=== PATIENT | male | born 1960 | race African-American/Black ===

== ENCOUNTER 2020-05-01 10:20 | Inpatient (IN) ==
[2020-05-01] MEDS ORDERED: SODIUM CHLORIDE 0.9% 500 ML IV STA (10:50)
[2020-05-01 10:59] LABS: Basophils % 0.2 % (0.0-0.8); Eosinophils % 0.1 % (0.00-10.9); Hematocrit 39.5 VOL% (42.0-52.0); Hemoglobin 12.7 GM/DL (14.0-18.0); Immature Granulocytes % 0.6 %; Immature Granulocytes Absolute 0.07 #; Lymphocytes # 1.1 10*3/uL (1.4-4.0); Lymphocytes % 10.1 % (21.2-54.2); Mean Corpuscular HGB Conc 32.2 GM/DL (32-36); Mean Corpuscular Volume 74.8 FL (87-102); Mean Platelet Volume 10.6 FL (9.6-12.0); Monocytes % 8.3 % (1.7-12.7); Neutrophils % 80.7 % (38.7-73.9); Platelet Count 300 T/CUMM (130-400); Red Blood Count 5.28 MC/CUMM (3.8-5.5); Red Cell Distribution Width 15.2 % (9.3-17.3); White Blood Count 10.8 T/CUMM (4-12)
[2020-05-01 11:25] LABS: Albumin 3.5 G/DL (3.4-5.0); Bilirubin,Total 0.8 MG/DL (0.2-1.0); Osmolality,Calculated 274.1 MOS/KG (273-304); Total Protein 8.5 G/DL (6.4-8.3)
[2020-05-01] MEDS ORDERED: DOCUSATE SODIUM 100 MG CAPSULE PO PRN (14:34)
[2020-05-01] MEDS ORDERED: DEXTROSE 50% 25 GM/50 ML VIAL IV PRN (14:34)
[2020-05-01] MEDS ORDERED: ACETAMINOPHEN 325 MG TABLET PO PRN (14:34)
[2020-05-01] MEDS ORDERED: GLUCAGON 1 MG VIAL IM PRN (14:34)
[2020-05-01] MEDS ORDERED: ONDANSETRON 4 MG/2 ML VIAL IV PRN (14:34)
[2020-05-01] MEDS ORDERED: hydrALAZINE 20 MG/1 ML VIAL IV PRN (14:34)
[2020-05-01] MEDS ORDERED: MAGNESIUM SULF RIDER 4 GM in PREMIX 1 EACH IV PRN (14:39)
[2020-05-01] MEDS ORDERED: MAGNESIUM SULF RIDER 2 GM in PREMIX 1 EACH IV PRN (14:39)
[2020-05-01] MEDS: SODIUM CHLORIDE 0.9% 1,000 ML IV SCH (17:14)
[2020-05-01] MEDS: ENOXAPARIN 40 MG/0.4 ML SYRINGE SUBCUT SCH (17:15)
[2020-05-01 19:51] LABS: Bilirubin,Urine Negative (Negative); Blood, Urine Negative (Negative); Glucose,Urine (UA) Negative (Negative); Hyaline Casts,Urine 7 /LPF (0-3); Ketones,Urine Negative (Negative); Mucus,Urine Occasional /LPF (Occasional); Nitrite,Urine Negative (Negative); Protein,Urine Negative; Squamous Epithelial Cell,Urine Occasional /HPF (0-10); Urine Appearance CLEAR (Clear); Urine Color Yellow (Yellow); Urine Specific Gravity > 1.060 (1.001-1.035); Urine Urobilinogen < 2.0 EU/DL (0.2-1.0)
[2020-05-01] MEDS: traZODone 50 MG TABLET PO PRN (22:21)
[2020-05-02] MEDS: SODIUM CHLORIDE 0.9% 1,000 ML IV SCH ×3 (02:00→17:39)
[2020-05-02 05:45] LABS: Basophils % 0.3 % (0.0-0.8); Eosinophils % 0.1 % (0.00-10.9); Hematocrit 34.3 VOL% (42.0-52.0); Immature Granulocytes % 0.6 %; Immature Granulocytes Absolute 0.05 #; Lymphocytes # 0.9 10*3/uL (1.4-4.0); Lymphocytes % 10.1 % (21.2-54.2); Mean Corpuscular HGB Conc 32.1 GM/DL (32-36); Mean Corpuscular Volume 74.2 FL (87-102); Mean Platelet Volume 12.5 FL (9.6-12.0); Monocytes % 12.6 % (1.7-12.7); Neutrophils % 76.3 % (38.7-73.9); Platelet Count 249 T/CUMM (130-400); Red Blood Count 4.62 MC/CUMM (3.8-5.5); Red Cell Distribution Width 14.9 % (9.3-17.3); White Blood Count 8.7 T/CUMM (4-12)
[2020-05-02 06:10] LABS: Albumin 2.8 G/DL (3.4-5.0); Bilirubin,Total 1.4 MG/DL (0.2-1.0); Calcium 10.4 MG/DL (8.5-10.1); Osmolality,Calculated 270.8 MOS/KG (273-304); Total Protein 7.8 G/DL (6.4-8.3)
[2020-05-02] MEDS: MEGESTROL 40 MG TABLET PO SCH (08:39)
[2020-05-02] MEDS: FOLIC ACID 1 MG TABLET PO SCH (08:40)
[2020-05-02] MEDS: MAGNESIUM OXIDE 400 MG TABLET PO SCH (08:40)
[2020-05-02] MEDS: amLODIPine 10 MG TABLET PO SCH (08:40)
[2020-05-02] MEDS: lisinopriL 20 MG TABLET PO SCH (08:40)
[2020-05-02] MEDS ORDERED: ZOLEDRONIC ACID 4 MG in PREMIX 1 EACH IV ONE ×2 (12:00→14:30)
[2020-05-02] MEDS: fentaNYL 25 MCG/HR PATCH TRANSDERM SCH (13:16)
[2020-05-02 14:22] LABS: % Iron Saturation 13.1 % (18-50); Ferritin 8813.8 ng/ml (26-388)
[2020-05-02] MEDS: ENOXAPARIN 40 MG/0.4 ML SYRINGE SUBCUT SCH (20:32)
[2020-05-03] MEDS: SODIUM CHLORIDE 0.9% 1,000 ML IV SCH ×2 (02:15→09:48)
[2020-05-03 05:44] LABS: Basophils % 0.3 % (0.0-0.8); Eosinophils % 0.1 % (0.00-10.9); Hematocrit 34.6 VOL% (42.0-52.0); Hemoglobin 11.1 GM/DL (14.0-18.0); Immature Granulocytes % 0.6 %; Immature Granulocytes Absolute 0.07 #; Lymphocytes # 0.8 10*3/uL (1.4-4.0); Lymphocytes % 7.4 % (21.2-54.2); Mean Corpuscular HGB Conc 32.1 GM/DL (32-36); Mean Corpuscular Volume 73.6 FL (87-102); Mean Platelet Volume 12.4 FL (9.6-12.0); Neutrophils % 80.6 % (38.7-73.9); Platelet Count 239 T/CUMM (130-400); Red Cell Distribution Width 14.8 % (9.3-17.3); White Blood Count 11.3 T/CUMM (4-12)
[2020-05-03 06:07] LABS: Calcium 9.3 MG/DL (8.5-10.1); Osmolality,Calculated 265.2 MOS/KG (273-304)
[2020-05-03 06:11] LABS: Albumin 2.6 G/DL (3.4-5.0); Bilirubin,Total 1.2 MG/DL (0.2-1.0); Calcium 9.3 MG/DL (8.5-10.1); Osmolality,Calculated 263.4 MOS/KG (273-304); Total Protein 7.5 G/DL (6.4-8.3)
[2020-05-03] MEDS: lisinopriL 20 MG TABLET PO SCH (09:15)
[2020-05-03] MEDS: MEGESTROL 40 MG TABLET PO SCH (09:15)
[2020-05-03] MEDS: FOLIC ACID 1 MG TABLET PO SCH (09:15)
[2020-05-03] MEDS: amLODIPine 10 MG TABLET PO SCH (09:16)
[2020-05-03] MEDS: MAGNESIUM OXIDE 400 MG TABLET PO SCH (09:16)
[2020-05-03] MEDS: ENOXAPARIN 40 MG/0.4 ML SYRINGE SUBCUT SCH (20:46)
[2020-05-04] MEDS: SODIUM CHLORIDE 0.9% 1,000 ML IV SCH ×4 (03:21→17:59)
[2020-05-04 05:42] LABS: Basophils % 0.2 % (0.0-0.8); Eosinophils % 0.2 % (0.00-10.9); Hematocrit 30.7 VOL% (42.0-52.0); Hemoglobin 10.1 GM/DL (14.0-18.0); Immature Granulocytes % 0.6 %; Immature Granulocytes Absolute 0.07 #; Lymphocytes # 0.9 10*3/uL (1.4-4.0); Lymphocytes % 7.9 % (21.2-54.2); Mean Corpuscular HGB Conc 32.9 GM/DL (32-36); Mean Corpuscular Volume 72.2 FL (87-102); Mean Platelet Volume 11.9 FL (9.6-12.0); Monocytes % 10.7 % (1.7-12.7); Neutrophils % 80.4 % (38.7-73.9); Platelet Count 221 T/CUMM (130-400); Red Blood Count 4.25 MC/CUMM (3.8-5.5); Red Cell Distribution Width 14.7 % (9.3-17.3); White Blood Count 10.9 T/CUMM (4-12)
[2020-05-04 06:03] LABS: Albumin 2.4 G/DL (3.4-5.0); Bilirubin,Total 0.8 MG/DL (0.2-1.0); Calcium 8.7 MG/DL (8.5-10.1); Osmolality,Calculated 261.5 MOS/KG (273-304); Total Protein 7.2 G/DL (6.4-8.3)
[2020-05-04] MEDS: lisinopriL 20 MG TABLET PO SCH (08:02)
[2020-05-04] MEDS: MEGESTROL 40 MG TABLET PO SCH (08:02)
[2020-05-04] MEDS: FOLIC ACID 1 MG TABLET PO SCH (08:02)
[2020-05-04] MEDS: amLODIPine 10 MG TABLET PO SCH (08:02)
[2020-05-04] MEDS: MAGNESIUM OXIDE 400 MG TABLET PO SCH (08:02)
[2020-05-04] MEDS: POTASSIUM CHLORIDE 20 MEQ TABLET PO PRN ×3 (08:03→13:03)
[2020-05-04] MEDS: ENOXAPARIN 40 MG/0.4 ML SYRINGE SUBCUT SCH (20:45)
[2020-05-05] MEDS: MORPHINE 4 MG/1 ML VIAL IV PRN (04:07)
[2020-05-05] MEDS: SODIUM CHLORIDE 0.9% 1,000 ML IV SCH ×4 (04:08→21:47)
[2020-05-05 06:01] LABS: Basophils % 0.1 % (0.0-0.8); Eosinophils # 0.2 10*3/uL (0.0-0.87); Eosinophils % 1.6 % (0.00-10.9); Hematocrit 32.6 VOL% (42.0-52.0); Hemoglobin 10.6 GM/DL (14.0-18.0); Immature Granulocytes % 0.5 %; Immature Granulocytes Absolute 0.07 #; Lymphocytes # 0.8 10*3/uL (1.4-4.0); Mean Corpuscular HGB Conc 32.5 GM/DL (32-36); Mean Corpuscular Volume 71.5 FL (87-102); Mean Platelet Volume 11.8 FL (9.6-12.0); Monocytes % 10.2 % (1.7-12.7); Neutrophils % 81.6 % (38.7-73.9); Platelet Count 282 T/CUMM (130-400); Red Blood Count 4.56 MC/CUMM (3.8-5.5); Red Cell Distribution Width 14.6 % (9.3-17.3); White Blood Count 13.5 T/CUMM (4-12)
[2020-05-05 06:33] LABS: Albumin 2.4 G/DL (3.4-5.0); Calcium 8.5 MG/DL (8.5-10.1); Osmolality,Calculated 261.5 MOS/KG (273-304); Total Protein 7.4 G/DL (6.4-8.3)
[2020-05-05] MEDS: fentaNYL 25 MCG/HR PATCH TRANSDERM SCH (08:55)
[2020-05-05] MEDS: amLODIPine 10 MG TABLET PO SCH (08:56)
[2020-05-05] MEDS: lisinopriL 20 MG TABLET PO SCH (08:56)
[2020-05-05] MEDS: MAGNESIUM OXIDE 400 MG TABLET PO SCH (08:56)
[2020-05-05] MEDS: FOLIC ACID 1 MG TABLET PO SCH (08:56)
[2020-05-05] MEDS: MEGESTROL 40 MG TABLET PO SCH (08:56)
[2020-05-05] MEDS: ENOXAPARIN 40 MG/0.4 ML SYRINGE SUBCUT SCH (21:42)
[2020-05-05] MEDS: traZODone 50 MG TABLET PO PRN (21:42)
[2020-05-06] MEDS: SODIUM CHLORIDE 0.9% 1,000 ML IV SCH (06:01)
[2020-05-06 06:21] LABS: Basophils % 0.2 % (0.0-0.8); Eosinophils # 0.4 10*3/uL (0.0-0.87); Eosinophils % 2.1 % (0.00-10.9); Hematocrit 35.6 VOL% (42.0-52.0); Hemoglobin 11.7 GM/DL (14.0-18.0); Immature Granulocytes % 0.8 %; Immature Granulocytes Absolute 0.14 #; Lymphocytes # 0.9 10*3/uL (1.4-4.0); Lymphocytes % 4.7 % (21.2-54.2); Mean Corpuscular HGB Conc 32.9 GM/DL (32-36); Mean Corpuscular Volume 70.8 FL (87-102); Mean Platelet Volume 10.2 FL (9.6-12.0); Neutrophils % 83.2 % (38.7-73.9); Platelet Count 337 T/CUMM (130-400); Red Blood Count 5.03 MC/CUMM (3.8-5.5); White Blood Count 18.6 T/CUMM (4-12)
[2020-05-06 06:52] LABS: Albumin 2.4 G/DL (3.4-5.0); Bilirubin,Total 1.1 MG/DL (0.2-1.0); Calcium 8.3 MG/DL (8.5-10.1); Osmolality,Calculated 261.5 MOS/KG (273-304); Total Protein 7.9 G/DL (6.4-8.3)
[2020-05-06 07:03] LABS: Anisocytosis Slight; Eosinophils 3 % (0-10); Lymphocytes 3 % (20-55); Macrocytosis Slight; Platelet Estimate Normal; Segmented Neutrophils 86 % (50-85); Total Cells Counted 100
[2020-05-06] MEDS: lisinopriL 20 MG TABLET PO SCH (09:00)
[2020-05-06] MEDS: MAGNESIUM OXIDE 400 MG TABLET PO SCH (09:00)
[2020-05-06] MEDS: FOLIC ACID 1 MG TABLET PO SCH (09:00)
[2020-05-06] MEDS: MEGESTROL 40 MG TABLET PO SCH (09:00)
[2020-05-06] MEDS: amLODIPine 10 MG TABLET PO SCH (09:00)
[2020-05-06] MEDS: MORPHINE 4 MG/1 ML VIAL IV PRN (17:52)
[2020-05-06] MEDS: ENOXAPARIN 40 MG/0.4 ML SYRINGE SUBCUT SCH (20:00)
[2020-05-07] MEDS: MORPHINE 4 MG/1 ML VIAL IV PRN (04:50)
[2020-05-07] MEDS: lisinopriL 20 MG TABLET PO SCH (08:48)
[2020-05-07] MEDS: MAGNESIUM OXIDE 400 MG TABLET PO SCH (08:48)
[2020-05-07] MEDS: FOLIC ACID 1 MG TABLET PO SCH (08:48)
[2020-05-07] MEDS: amLODIPine 10 MG TABLET PO SCH (08:48)
[2020-05-07] MEDS: MEGESTROL 40 MG TABLET PO SCH (08:48)
[2020-05-07 20:01] LABS: Bacteria,Urine Occasional /HPF (Few); Bilirubin,Urine Small mg/dL (Negative); Blood, Urine Moderate mg/dL (Negative); Glucose,Urine (UA) Negative (Negative); Hyaline Casts,Urine 14 /LPF (0-3); Ketones,Urine 5 mg/dL (Negative); Mucus,Urine Occasional /LPF (Occasional); Nitrite,Urine Negative (Negative); Protein,Urine 30 MG/DL; RBC,Urine 19 /HPF (0-4); Squamous Epithelial Cell,Urine Occasional /HPF (0-10); Urine Appearance Slightly Hazy (Clear); Urine Color Amber (Yellow); WBC,Urine 93 /HPF (0-6)
[2020-05-07] MEDS: ENOXAPARIN 40 MG/0.4 ML SYRINGE SUBCUT SCH (20:50)
[2020-05-07] MEDS: traZODone 50 MG TABLET PO PRN (20:51)
[2020-05-07] MEDS: DEXAMETHASONE 4 MG/1 ML VIAL IV SCH (20:51)
[2020-05-08 01:25] LABS: Calcium 7.7 MG/DL (8.5-10.1); Osmolality,Calculated 274.1 MOS/KG (273-304)
[2020-05-08 01:34] LABS: Basophils % 0.1 % (0.0-0.8); Eosinophils # 0.2 10*3/uL (0.0-0.87); Eosinophils % 1.6 % (0.00-10.9); Hematocrit 31.3 VOL% (42.0-52.0); Hemoglobin 10.3 GM/DL (14.0-18.0); Immature Granulocytes % 0.7 %; Immature Granulocytes Absolute 0.07 #; Lymphocytes # 0.5 10*3/uL (1.4-4.0); Lymphocytes % 4.6 % (21.2-54.2); Mean Corpuscular HGB Conc 32.9 GM/DL (32-36); Mean Corpuscular Volume 71.1 FL (87-102); Mean Platelet Volume 11.4 FL (9.6-12.0); Monocytes % 3.2 % (1.7-12.7); Neutrophils % 89.8 % (38.7-73.9); Platelet Count 424 T/CUMM (130-400); Red Cell Distribution Width 14.9 % (9.3-17.3); White Blood Count 9.9 T/CUMM (4-12)
[2020-05-08] MEDS: FOLIC ACID 1 MG TABLET PO SCH (09:05)
[2020-05-08] MEDS: fentaNYL 25 MCG/HR PATCH TRANSDERM SCH (09:05)
[2020-05-08] MEDS: amLODIPine 10 MG TABLET PO SCH (09:05)
[2020-05-08] MEDS: MEGESTROL 40 MG TABLET PO SCH (09:05)
[2020-05-08] MEDS: MAGNESIUM OXIDE 400 MG TABLET PO SCH (09:05)
[2020-05-08] MEDS: lisinopriL 20 MG TABLET PO SCH (09:05)
[2020-05-08] MEDS: MORPHINE 4 MG/1 ML VIAL IV PRN (09:06)
[2020-05-08] MEDS: DEXAMETHASONE 4 MG/1 ML VIAL IV SCH ×3 (09:08→22:01)
[2020-05-08] MEDS: cefTRIAXone 1,000 MG in SYRINGE 1 EACH IV SCH (14:24)
[2020-05-08] MEDS: traZODone 50 MG TABLET PO PRN (22:02)
[2020-05-08] MEDS: ENOXAPARIN 40 MG/0.4 ML SYRINGE SUBCUT SCH (22:02)
[2020-05-09] MEDS: FOLIC ACID 1 MG TABLET PO SCH (08:47)
[2020-05-09] MEDS: MAGNESIUM OXIDE 400 MG TABLET PO SCH (08:47)
[2020-05-09] MEDS: MEGESTROL 40 MG TABLET PO SCH (08:47)
[2020-05-09] MEDS: lisinopriL 20 MG TABLET PO SCH (08:47)
[2020-05-09] MEDS: DEXAMETHASONE 4 MG/1 ML VIAL IV SCH ×3 (08:48→20:35)
[2020-05-09] MEDS: amLODIPine 10 MG TABLET PO SCH (08:48)
[2020-05-09] MEDS: cefTRIAXone 1,000 MG in SYRINGE 1 EACH IV SCH (09:08)
[2020-05-09] MEDS: ENOXAPARIN 40 MG/0.4 ML SYRINGE SUBCUT SCH (20:32)
[2020-05-09] MEDS: traZODone 50 MG TABLET PO PRN (21:36)
[2020-05-09] MEDS: MORPHINE 4 MG/1 ML VIAL IV PRN (23:52)
[2020-05-10 06:15] LABS: Basophils % 0.1 % (0.0-0.8); Hematocrit 31.8 VOL% (42.0-52.0); Hemoglobin 10.2 GM/DL (14.0-18.0); Immature Granulocytes % 1.5 %; Immature Granulocytes Absolute 0.18 #; Lymphocytes # 0.9 10*3/uL (1.4-4.0); Lymphocytes % 7.9 % (21.2-54.2); Mean Corpuscular HGB Conc 32.1 GM/DL (32-36); Mean Corpuscular Volume 72.9 FL (87-102); Mean Platelet Volume 10.7 FL (9.6-12.0); Monocytes % 10.1 % (1.7-12.7); Neutrophils % 80.4 % (38.7-73.9); Platelet Count 578 T/CUMM (130-400); Red Blood Count 4.36 MC/CUMM (3.8-5.5); Red Cell Distribution Width 15.2 % (9.3-17.3); White Blood Count 11.9 T/CUMM (4-12)
[2020-05-10 06:27] LABS: Calcium 8.9 MG/DL (8.5-10.1); Osmolality,Calculated 281.5 MOS/KG (273-304)
[2020-05-10] MEDS: DEXAMETHASONE 4 MG/1 ML VIAL IV SCH ×3 (08:18→20:29)
[2020-05-10] MEDS: MEGESTROL 40 MG TABLET PO SCH (08:19)
[2020-05-10] MEDS: cefTRIAXone 1,000 MG in SYRINGE 1 EACH IV SCH (08:19)
[2020-05-10] MEDS: amLODIPine 10 MG TABLET PO SCH (08:19)
[2020-05-10] MEDS: FOLIC ACID 1 MG TABLET PO SCH (08:19)
[2020-05-10] MEDS: lisinopriL 20 MG TABLET PO SCH (08:19)
[2020-05-10] MEDS: MAGNESIUM OXIDE 400 MG TABLET PO SCH (08:19)
[2020-05-10] MEDS: ENOXAPARIN 40 MG/0.4 ML SYRINGE SUBCUT SCH (20:29)
[2020-05-11 06:33] LABS: Basophils % 0.1 % (0.0-0.8); Hematocrit 33.4 VOL% (42.0-52.0); Hemoglobin 10.8 GM/DL (14.0-18.0); Immature Granulocytes % 2.8 %; Lymphocytes # 1.4 10*3/uL (1.4-4.0); Lymphocytes % 9.8 % (21.2-54.2); Mean Corpuscular HGB Conc 32.3 GM/DL (32-36); Mean Corpuscular Volume 71.2 FL (87-102); Mean Platelet Volume 10.3 FL (9.6-12.0); Monocytes % 11.9 % (1.7-12.7); NRBC # 0.04 10*3/uL; Neutrophils % 75.4 % (38.7-73.9); Platelet Count 558 T/CUMM (130-400); Red Blood Count 4.69 MC/CUMM (3.8-5.5); Red Cell Distribution Width 15.5 % (9.3-17.3); White Blood Count 14.3 T/CUMM (4-12)
[2020-05-11 07:06] LABS: Calcium 9.3 MG/DL (8.5-10.1); Osmolality,Calculated 279.5 MOS/KG (273-304)
[2020-05-11] MEDS: DEXAMETHASONE 4 MG/1 ML VIAL IV SCH ×3 (09:11→21:14)
[2020-05-11] MEDS: cefTRIAXone 1,000 MG in SYRINGE 1 EACH IV SCH (09:11)
[2020-05-11] MEDS: amLODIPine 10 MG TABLET PO SCH (09:11)
[2020-05-11] MEDS: fentaNYL 25 MCG/HR PATCH TRANSDERM SCH (09:11)
[2020-05-11] MEDS: MAGNESIUM OXIDE 400 MG TABLET PO SCH (09:12)
[2020-05-11] MEDS: FOLIC ACID 1 MG TABLET PO SCH (09:12)
[2020-05-11] MEDS: MEGESTROL 40 MG TABLET PO SCH (09:12)
[2020-05-11] MEDS: lisinopriL 20 MG TABLET PO SCH (09:12)
[2020-05-11] MEDS: ENOXAPARIN 40 MG/0.4 ML SYRINGE SUBCUT SCH (21:13)
[2020-05-12] MEDS: amLODIPine 10 MG TABLET PO SCH (09:52)
[2020-05-12] MEDS: FOLIC ACID 1 MG TABLET PO SCH (09:52)
[2020-05-12] MEDS: cefTRIAXone 1,000 MG in SYRINGE 1 EACH IV SCH (09:53)
[2020-05-12] MEDS: lisinopriL 20 MG TABLET PO SCH (09:53)
[2020-05-12] MEDS: DEXAMETHASONE 4 MG/1 ML VIAL IV SCH ×3 (09:53→20:40)
[2020-05-12] MEDS: MAGNESIUM OXIDE 400 MG TABLET PO SCH (09:53)
[2020-05-12] MEDS: MEGESTROL 40 MG TABLET PO SCH (09:53)
[2020-05-12] MEDS: ENOXAPARIN 40 MG/0.4 ML SYRINGE SUBCUT SCH (20:39)
[2020-05-12] MEDS: traZODone 50 MG TABLET PO PRN (22:29)
[2020-05-13 06:08] LABS: Basophils % 0.1 % (0.0-0.8); Hemoglobin 10.4 GM/DL (14.0-18.0); Immature Granulocytes % 2.8 %; Immature Granulocytes Absolute 0.46 #; Lymphocytes # 0.9 10*3/uL (1.4-4.0); Lymphocytes % 5.6 % (21.2-54.2); Mean Corpuscular HGB Conc 32.5 GM/DL (32-36); Mean Corpuscular Volume 70.8 FL (87-102); Mean Platelet Volume 10.3 FL (9.6-12.0); Monocytes % 7.5 % (1.7-12.7); NRBC # 0.02 10*3/uL; Platelet Count 531 T/CUMM (130-400); Red Blood Count 4.52 MC/CUMM (3.8-5.5); Red Cell Distribution Width 15.9 % (9.3-17.3); White Blood Count 16.7 T/CUMM (4-12)
[2020-05-13 06:32] LABS: Calcium 9.2 MG/DL (8.5-10.1); Osmolality,Calculated 273.1 MOS/KG (273-304)
[2020-05-13] MEDS: amLODIPine 10 MG TABLET PO SCH (09:03)
[2020-05-13] MEDS: lisinopriL 20 MG TABLET PO SCH (09:03)
[2020-05-13] MEDS: MAGNESIUM OXIDE 400 MG TABLET PO SCH (09:03)
[2020-05-13] MEDS: cefTRIAXone 1,000 MG in SYRINGE 1 EACH IV SCH (09:04)
[2020-05-13] MEDS: FOLIC ACID 1 MG TABLET PO SCH (09:04)
[2020-05-13] MEDS: DEXAMETHASONE 4 MG/1 ML VIAL IV SCH ×3 (09:04→21:34)
[2020-05-13] MEDS: MEGESTROL 40 MG TABLET PO SCH (09:04)
[2020-05-13] MEDS ORDERED: SODIUM PHOSPHATE ENEMA 133 ML BOTTLE RECTAL PRN (11:12)
[2020-05-13] MEDS: POLYETHYLENE GLYCOL POWDER 17 GM PACK PO SCH ×2 (11:25→21:33)
[2020-05-13] MEDS ORDERED: PEMETREXED IV ONE (12:00)
[2020-05-13] MEDS ORDERED: CARBOplatin 500 MG in SODIUM CHLORIDE 0.9% 250 ML IV ONE (12:00)
[2020-05-13] MEDS ORDERED: GRANISETRON 1 MG/1 ML VIAL IV SCH (12:00)
[2020-05-13] MEDS ORDERED: SODIUM CHLORIDE 0.9% IV ONE (12:00)
[2020-05-13] MEDS ORDERED: DEXAMETHASONE 10 MG/1 ML VIAL IV ONE (12:00)
[2020-05-13] MEDS: traZODone 50 MG TABLET PO PRN (21:34)
[2020-05-13] MEDS: ENOXAPARIN 40 MG/0.4 ML SYRINGE SUBCUT SCH (21:34)
[2020-05-14 04:40] LABS: Basophils % 0.1 % (0.0-0.8); Hematocrit 34.7 VOL% (42.0-52.0); Hemoglobin 11.1 GM/DL (14.0-18.0); Immature Granulocytes % 2.2 %; Immature Granulocytes Absolute 0.34 #; Lymphocytes # 0.6 10*3/uL (1.4-4.0); Lymphocytes % 4.1 % (21.2-54.2); Mean Corpuscular Volume 72.7 FL (87-102); Mean Platelet Volume 10.5 FL (9.6-12.0); Monocytes % 7.1 % (1.7-12.7); Neutrophils % 86.5 % (38.7-73.9); Platelet Count 506 T/CUMM (130-400); Red Blood Count 4.77 MC/CUMM (3.8-5.5); Red Cell Distribution Width 16.3 % (9.3-17.3); White Blood Count 15.5 T/CUMM (4-12)
[2020-05-14 05:01] LABS: Calcium 9.2 MG/DL (8.5-10.1); Osmolality,Calculated 272.2 MOS/KG (273-304)
[2020-05-14 05:10] LABS: Lymphocytes 3 % (20-55); Platelet Estimate Adequate; Segmented Neutrophils 94 % (50-85); Total Cells Counted 100
[2020-05-14 05:11] LABS: Hypochromasia 1+
[2020-05-14] MEDS: fentaNYL 25 MCG/HR PATCH TRANSDERM SCH (08:49)
[2020-05-14] MEDS: amLODIPine 10 MG TABLET PO SCH (08:51)
[2020-05-14] MEDS: MEGESTROL 40 MG TABLET PO SCH (08:51)
[2020-05-14] MEDS: MAGNESIUM OXIDE 400 MG TABLET PO SCH (08:51)
[2020-05-14] MEDS: FOLIC ACID 1 MG TABLET PO SCH (08:51)
[2020-05-14] MEDS: lisinopriL 20 MG TABLET PO SCH (08:51)
[2020-05-14] MEDS: DEXAMETHASONE 4 MG/1 ML VIAL IV SCH ×2 (08:53→14:39)
[2020-05-14] MEDS: cefTRIAXone 1,000 MG in SYRINGE 1 EACH IV SCH (08:54)
[2020-05-14] MEDS: POLYETHYLENE GLYCOL POWDER 17 GM PACK PO SCH (08:55)
[2020-05-14 12:06] VITALS: BP 125/76
== END 2020-05-14 15:51 | disposition home health service (06) | DRG 640 ==
LOC: N.ED 10:20 → N.EDINP 10:20 → N.5E 16:43 → SUATTDRO 05-02 07:56
PROVIDERS: ADMIT Internal Medicine; ATTEND Internal Medicine